=== PATIENT | male | born 1955 | race Caucasian/White ===

== ENCOUNTER 2016-05-03 08:13 | Outpatient (CLI) | payer OTHER ==
[2016-05-03] MEDS ORDERED: IOPAMIDOL-300 100 ML VIAL IVP ONE (10:14)
[2016-05-03] MEDS ORDERED: IOPAMIDOL-300 50 ML VIAL PO ONE (10:14)
== END 2016-05-03 08:14 | disposition home or self-care (01) ==
DX: D17.79 Benign lipomatous neoplasm of other sites (principal); K76.0 Fatty (change of) liver, not elsewhere classified
CPT/HCPCS: 36415; 74177; 82565; 84520; Q9967

== ENCOUNTER 2016-06-09 09:05 | Outpatient (CLI) | payer OTHER | END 2016-06-09 09:06 | disposition home or self-care (01) | DX: R06.02 Shortness of breath (principal); R01.1 Cardiac murmur, unspecified; I51.7 Cardiomegaly ==

== ENCOUNTER 2016-06-14 13:12 | Outpatient (CLI) | payer OTHER | END 2016-06-14 13:13 | disposition home or self-care (01) | DX: G47.33 Obstructive sleep apnea (adult) (pediatric) (principal) ==

== ENCOUNTER 2016-07-01 09:00 | Outpatient (CLI) | payer OTHER | END 2016-07-01 09:01 | disposition home or self-care (01) | DX: R07.9 Chest pain, unspecified (principal); R06.02 Shortness of breath; R07.2 Precordial pain | CPT/HCPCS: 78452; 93017; A9500 ==

== ENCOUNTER 2016-11-07 10:36 | Emergency (ER) | payer OTHER ==
--- NOTE | 2016-11-07 11:03 | ED Physician Documentation ---
PD HPI SKIN - Stated complaint Stated Complaint: R BIG TOE SWOLLEN - Chief complaint Chief Complaint: Ext Problem - History obtained from History obtained from: Patient - History of Present Illness Timing - onset: How many days ago (few) Timing - duration: Days (few) Timing - details: Gradual onset (he had abraded off some callous on side of great toe MT head area with small drilltype thing, but the callous area looks fine and no purulance nor redness.) Location: Other (right great toe dorsum.) Quality / character: Painful, Discolored (red), Swelling Associated symptoms: Myalgias. No: Fever, N/V/D Similar symptoms before: No diagnosis Recently seen: Not recently seen Review of Systems Constitutional: reports: Chills, Myalgias. denies: Fever, Fatigue Nose: denies: Rhinorrhea / runny nose, Congestion Throat: denies: Dental pain / toothache, Sore throat Cardiac: denies: Chest pain / pressure Respiratory: denies: Dyspnea, Cough GI: denies: Abdominal Pain, Nausea : denies: Dysuria, Frequency Skin: reports: Abrasion (s) (base of great toe MT). denies: Lesions PD PAST MEDICAL HISTORY - Past Medical History Cardiovascular: Hypertension, High cholesterol, Murmur Respiratory: Sleep apnea, CPAP use Endocrine/Autoimmune: Type 2 diabetes GI: GERD : None HEENT: Chronic sinusitis Psych: None Musculoskeletal: Other Derm: None - Past Surgical History Past Surgical History: Yes General: Colonoscopy Ortho: Arthroscopic surgery, Other - Present Medications Home Medications: Ambulatory Orders Medication Instructions Recorded Confirmed Amlodipine Besylate [Norvasc] 10 mg PO ONCE 08/28/14 11/07/16 Lisinopril 40 mg PO DAILY 08/28/14 11/07/16 Ascorbic Acid [Vitamin C] 500 mg PO DAILY 12/09/15 11/07/16 Aspirin [Adult Low Dose Aspirin EC] 81 mg PO DAILY 12/09/15 11/07/16 Atorvastatin Calcium 80 mg PO DAILY 12/09/15 11/07/16 Esomeprazole Magnesium [Nexium] 20 mg PO BID 12/09/15 11/07/16 Flaxseed Oil [[place]-3 Flaxseed Oil] 1,000 mg PO DAILY 12/09/15 11/07/16 Multivitamin [Multivitamins] 1 ea PO DAILY 12/09/15 11/07/16 [place]-3 Fatty Acids [Fish Oil] 300 mg PO DAILY 12/09/15 11/07/16 Ubidecarenone [Co Q-10] 75 mg PO DAILY 12/09/15 11/07/16 Cephalexin [Keflex] 500 mg PO QID #24 capsule 11/07/16 Dexamethasone [Decadron] 4 mg PO DAILY #5 tablet 11/07/16 HYDROcod/ACETAM 5/325 [[place] 5/325] 1 tab PO Q6H PRN #15 tablet 11/07/16 Sitagliptin Phosphate [Januvia] 50 mg PO DAILY 11/07/16 11/07/16 - Allergies Allergies/Adverse Reactions: Allergies Allergy/AdvReac Type Severity Reaction Status Date / Time No Known Drug Allergies Allergy Verified 12/09/15 10:10 - Social History Does the pt smoke?: No Smoking Status: Never smoker Does the pt drink ETOH?: Yes Does the pt have substance abuse?: No - Immunizations Immunizations are current?: Yes PD ED PE NORMAL - Vitals Vital signs reviewed: Yes - General General: Alert and oriented X 3, No acute distress, Well developed/nourished - HEENT HEENT: Pharynx benign - Neck Neck: Supple, no meningeal sign, No adenopathy - Derm Derm: Warm and dry - Extremities Extremities: Other (great toe MTP arrea dorsal, lateral with redness, swelling, tender. Mild effusion at MTP. ) - Neuro Neuro: No motor deficit, No sensory deficit Results - Vitals Vitals: Vital Signs - 24 hr 11/07/16 11/07/16 10:39 12:03 Temperature 36.5 C Heart Rate 84 70 Respiratory 18 20 Rate Blood Pressure 174/87 H 166/94 H O2 Saturation 99 97 Oxygen O2 Source Room air PD MEDICAL DECISION MAKING - ED course Complexity details: considered differential (some swelling of the great toe MTP but not much effusion, so I was not feeling there was a drainable amount. Can treat like potential gout vs. infection. He has some itchy patches anteromedial lower leg without blisters. Not quite convincing for shingles at this point. ), d/w patient Departure - Departure Disposition: 01 Home, Self Care Clinical Impression: Rash Great toe pain Qualifiers: Laterality: right Qualified Code(s): M79.674 - Pain in right toe(s) Condition: Stable Record reviewed to determine appropriate education?: Yes Instructions: ED Infec Skin Cellulitis, ED Arthritis Gout Prescriptions: Dexamethasone [Decadron] 4 mg PO DAILY #5 tablet Cephalexin [Keflex] 500 mg PO QID #24 capsule HYDROcod/ACETAM 5/325 [[place] 5/325] 1 tab PO Q6H PRN #15 tablet PRN Reason: Pain Comments: This looks like it may be an inflammatory response in the joint such as gout though there is concern for infection of the skin (cellulitis). Use the Decadron daily for the next 5 days. Use Tylenol or hydrocodone as needed for pain. Take the cephalexin as prescribed for concern of infection. The itchy spots on the lower leg may be unrelated. However if you develop more spots of rash on the leg or towards the back, then consider an alternative such as shingles. If this is not improving over the next few days or having worsening symptoms, return for reassessment. Discharge Date/Time: 11/07/16 12:03
[2016-11-07] MEDS ORDERED: CEPHALEXIN 250 MG CAPSULE PO STA (11:24)
[2016-11-07] MEDS ORDERED: DEXAMETHASONE 10 MG/ML VIAL PO STA (11:24)
[2016-11-07] MEDS ORDERED: DEXAMETHASONE 10 MG/ML VIAL ONE (11:30)
[2016-11-07] MEDS ORDERED: CEPHALEXIN 250 MG CAPSULE PO ONE (11:30)
[2016-11-07] MEDS ORDERED: CHERRY SYRUP 10 ML UDC PO ONE (11:30)
[2016-11-07] MEDS ORDERED: HYDROcod/ACETAM 5/325 MG TABLET PO STA (11:40)
[2016-11-07 12:05] VITALS: BP 166/94
== END 2016-11-07 12:03 | disposition home or self-care (01) ==
LOC: ED 10:36
DX: R21 Rash and other nonspecific skin eruption (principal); M79.674 Pain in right toe(s); I10 Essential (primary) hypertension; E78.00 Pure hypercholesterolemia, unspecified; G47.30 Sleep apnea, unspecified; E11.9 Type 2 diabetes mellitus without complications; Z79.84 Long term (current) use of oral hypoglycemic drugs; K21.9 Gastro-esophageal reflux disease without esophagitis; Z79.82 Long term (current) use of aspirin
CPT/HCPCS: 99283; A9270

== ENCOUNTER 2017-06-20 09:54 | Outpatient (CLI) | payer OTHER | END 2017-06-20 09:55 | disposition home or self-care (01) | LOC: SC 09:54 | PROVIDERS: ATTEND Internal Medicine Pulmonary Disease | DX: G47.33 Obstructive sleep apnea (adult) (pediatric) (principal) | CPT/HCPCS: 99212; 99213 ==

== ENCOUNTER 2018-06-16 09:36 | Outpatient (CLI) | payer MEDICARE, OTHER ==
[2018-06-16 13:54] LABS: CALCIUM 9.9 mg/dL (8.5-10.3)
[2018-06-16 14:25] LABS: CREATININE 1.1 mg/dL (0.6-1.2)
[2018-06-16 14:39] LABS: CREATININE,URINE 68.6 mg/dL; PROTEIN/CREATININE RATIO,URINE 0.6 (<=0.2)
== END 2018-06-16 23:59 | disposition home or self-care (01) ==
LOC: LAB.N 09:36
PROVIDERS: ATTEND Internal Medicine Nephrology
DX: N05.9 Unspecified nephritic syndrome with unspecified morphologic changes (principal); R80.9 Proteinuria, unspecified
CPT/HCPCS: 36415; 80048; 82570; 84156

== ENCOUNTER 2018-07-10 14:58 | Outpatient (CLI) | payer MEDICARE, OTHER | END 2018-07-10 14:59 | disposition home or self-care (01) | LOC: SC 14:58 | PROVIDERS: ATTEND Internal Medicine Pulmonary Disease | DX: G47.33 Obstructive sleep apnea (adult) (pediatric) (principal) | CPT/HCPCS: 99213; G0463; 99212 ==

== ENCOUNTER 2018-07-31 08:00 | Outpatient (CLI) | payer MEDICARE, OTHER ==
[2018-07-31 19:54] LABS: CALCIUM 10.1 mg/dL (8.5-10.3); CREATININE 1.3 mg/dL (0.6-1.2)
== END 2018-07-31 23:59 | disposition home or self-care (01) ==
LOC: LAB.N 08:00
PROVIDERS: ATTEND Internal Medicine Nephrology
DX: N05.9 Unspecified nephritic syndrome with unspecified morphologic changes (principal)
CPT/HCPCS: 36415; 80048

== ENCOUNTER 2019-01-15 10:13 | Outpatient (CLI) | payer MEDICARE, OTHER ==
--- NOTE | 2019-01-15 11:04 | SLEEP CARE CONSULTATION ---
Information from patient questionnaire entered by Clare Rolon. I have reviewed and concur with the information entered by Clare Rolon. This document represents the service I personally performed and the decisions made by me, Larisa Chu MD, [facility]. History of Present Illness Previous diagnosis: Very Severe, Obstructive Sleep Apnea-Hypopnea Syndrome AHI: 83 Reason for CPAP/BiPAP follow up: six month (AND NEW MACHINE) Equipment type: CPAP Equipment obtained from: [employer] Prior sleep studies: Yes Year and Where: 2005 Merged with [facility] HPI additional information: HPI: Mr. Flores was diagnosed to have very severe obstructive sleep apnea- hypopnea syndrome and returns today for annual follow up of CPAP therapy. The patient gets his supplies from [employer] and was fitted with nasal pillows. He continues to use the device nightly and all through the night. The compliance report shows that he uses the device 179 nights out of the past 180 nights, averaging 7.9 hours a night. He complains of nasal congestion and occasional sinus pain. He thinks that the pressure of 6 12 cmH2O is more comfortable (lowered from 8 - 13 cmH2O). On the CPAP therapy he notices improvement in his sleep quality, and that he wakes up feeling fresher in the morning and more awake/alert during the day. [place] Sleepiness Scale score is 0. His notices no snore at all. The average residual AHI is 1.6; and large leak, 3 seconds a night. ROS: Same as previous. Current Medications: lisinopril, Norvasc, Lipitor, aspirin, and chlorthalidone CPAP Compliance Data - Data Reviewed with Patient Average duration of nightly device use: 7H 58M Compliance rate %: 98.9 Current pressure setting (cmH2O): 6-12 Humidity settin Heated hose settin Subjective Initial [place] Sleepiness Scale score: 1 Current [place] Sleepiness Scale score: 0 Allergies and Home Medications Drug allergies reviewed: Yes Home medication list reviewed: Yes Review of Systems Review of systems same as previous: Yes Physical Exam Weight: 229 lb Impression and Plan IMPRESSION: 1. Obstructive Sleep Apnea-Hypopnea Syndrome, very severe, with the patient continuing to do well on nasal CPAP therapy. He continues to have excellent compliance and significant clinical benefits. The current pressure appears effective but comfortable. No adjustment is necessary today except for him to raise the heated humidifier setting. Because the CPAP is now older than the useful life of 5 years, I will order the patient a new one and make it an autoCPAP set between 6 and 12 cmH2O. PLAN: 1. Prescription made for an autoCPAP, heated humidifier, and related supplies. 2. Try to lose weight 3. Raise the heated humidifier for dryness. 4. Return for follow up after one month on the new machine. I spent 100% of this 15 minute visit face to face with the patient with greater than 50% of this was spent time counseling the patient and coordination of care.
== END 2019-01-15 10:14 | disposition home or self-care (01) ==
LOC: SC 10:13
PROVIDERS: ATTEND Internal Medicine Pulmonary Disease
DX: G47.33 Obstructive sleep apnea (adult) (pediatric) (principal)
CPT/HCPCS: 99212; 99213

== ENCOUNTER 2019-04-03 09:30 | Outpatient (CLI) | payer MEDICARE, OTHER ==
--- NOTE | 2019-04-03 13:33 | SLEEP CARE CONSULTATION ---
Information from patient questionnaire entered by Alda Johnson. I have reviewed and concur with the information entered by Alda Johnson. This document represents the service I personally performed and the decisions made by me, Larisa Chu MD, [facility]. History of Present Illness Previous diagnosis: Very Severe, Obstructive Sleep Apnea-Hypopnea Syndrome Reason for follow up: first compliance after device update Equipment type: CPAP [facility]: [facility] HPI additional information: HPI: Mr. Flores was diagnosed to have very severe obstructive sleep apnea- hypopnea syndrome and returns today for follow up of CPAP therapy after having acquired a new machine about 2 months ago [facility]. The patient gets his supplies from [employer] and was fitted with nasal pillows. He continues to use the device nightly and all through the night. The compliance report shows that he uses the device 30 nights out of the past 30 nights, averaging 8.5 hours a night. The > 4 hour compliance rate for the past 30 days is 100%. He complains of occasional insomnia and nasal congestion but no sinus pain. He thinks that the pressure of 6 12 cmH2O is more comfortable (same as on his old machine). On the CPAP therapy he notices improvement in his sleep quality, and that he wakes up feeling fresher in the morning and more awake/alert during the day. [place] Sleepiness Scale score is 0. His notices no snore at all. The average residual AHI is 3.5; and large leak, 3 minutes a night. The 90th percentile pressure is 10.4 cmH2O. CPAP Compliance Data - Data Reviewed with Patient Average duration of nightly device use: 8.5 Compliance rate %: 100 Current pressure setting (cmH2O): 6-12 Humidity settin Heated hose settin Average residual AHI: 3.5 Average large leak: 3 min 20 sec Subjective Initial [place] Sleepiness Scale score: 3 Current [place] Sleepiness Scale score: 0 Allergies and Home Medications Drug allergies reviewed: Yes (NKDA) Home medication list reviewed: Yes Allergy and home medication list: Current Medications: lisinopril, Norvasc, Lipitor, aspirin, and Co Q-10 Review of Systems Review of systems same as previous: Yes Physical Exam Weight: 218 lb Impression and Plan IMPRESSION: 1. Obstructive Sleep Apnea-Hypopnea Syndrome, very severe, with the patient continuing to do well on nasal CPAP therapy. He continues to have excellent compliance and significant clinical benefits. The current pressure appears effective but comfortable. No adjustment is necessary today. 2. Insomnia, due to excessive time spent in bed. His average CPAP usage has increased from 7.9 hours to 8.5 hours a night. This is because he no longer works and gets up late. However, he fails to move his bedtime later as well. PLAN: 1. Continue with autoCPAP set at 6 12 cmH2O. 2. Try to lose weight 3. Raise the heated humidifier for dryness and lower the tube temperature to reduce warmth. 4. Maintain a regular wake up time and spend no more than 8 hours in bed at night. Avoid naps. 5. Return for follow up in a year or earlier if there is any problem. I spent 100% of this visit face to face with the patient with greater than 50% of this was spent time counseling the patient and coordination of care.
== END 2019-04-03 09:31 | disposition home or self-care (01) ==
LOC: SC 09:30
PROVIDERS: ATTEND Internal Medicine Pulmonary Disease
DX: G47.33 Obstructive sleep apnea (adult) (pediatric) (principal); G47.00 Insomnia, unspecified
CPT/HCPCS: 99213; G0463; 99212

== ENCOUNTER 2019-08-16 08:00 | Outpatient (CLI) | payer MEDICARE, OTHER ==
[2019-08-16 18:16] LABS: HGB - HEMOGLOBIN 14.6 g/dL (14.0-18.0); MEAN CORPUSCULAR HEMOGLOBIN 30.9 pg (27.0-31.0); MEAN CORPUSCULAR HGB CONC 33.6 g/dL (32.0-36.0); MEAN CORPUSCULAR VOLUME 91.9 fL (80.0-94.0); MEAN PLATELET VOLUME 10.7 fL (7.4-11.4); RED BLOOD COUNT 4.72 10^6/uL (4.70-6.10); RED CELL DISTRIBUTION WIDTH 13.3 % (12.0-15.0); WHITE BLOOD COUNT 9.6 x10^3/uL (4.8-10.8)
[2019-08-16 18:36] LABS: CALCIUM 9.9 mg/dL (8.5-10.3); CREATININE 1.4 mg/dL (0.6-1.2)
[2019-08-16 18:42] LABS: PROTEIN/CREATININE RATIO,URINE 0.2 (<=0.2)
== END 2019-08-16 23:59 | disposition home or self-care (01) ==
LOC: LAB.WCP 08:00
PROVIDERS: ATTEND Internal Medicine Nephrology
DX: N05.9 Unspecified nephritic syndrome with unspecified morphologic changes (principal); D70.9 Neutropenia, unspecified; D63.1 Anemia in chronic kidney disease; R80.9 Proteinuria, unspecified; N18.9 Chronic kidney disease, unspecified
CPT/HCPCS: 36415; 80048; 82570; 84156; 85027

== ENCOUNTER 2020-04-08 11:02 | Outpatient (CLI) | payer MEDICARE, OTHER ==
--- NOTE | 2020-04-08 12:50 | SLEEP CARE CONSULTATION ---
Information from patient questionnaire entered by Alda Johnson. I have reviewed and concur with the information entered by Alda Johnson. This document represents the service I personally performed and the decisions made by me, Larisa Chu MD, [facility]. History of Present Illness Service Date and Time: 04/08/2020 1102 Previous diagnosis: Very Severe, Obstructive Sleep Apnea-Hypopnea Syndrome AHI: 83 (in 2005) Reason for follow up: annual (last seen 03/2019) Equipment type: CPAP Equipment obtained from: [employer] Mask style: Nasal Prior sleep studies: Yes Year and Where: 2005 - [facility] Type of Sleep Study: Polysomnography HPI additional information: HPI: Mr. Flores was diagnosed to have very severe obstructive sleep apnea- hypopnea syndrome and returns today for annual follow up of CPAP therapy. His durable medical supplier is [employer]. The patient now wears a [employer] DreamWear nasal cushion mask. He continues to use the device nightly and all through the night. The compliance report shows that he uses the device 179 n ights out of the past 180 nights, averaging 8.3 hours a night. The > 4 hour compliance rate for the past 180 days is 98%. He complains of occasional insomnia and nasal congestion but no sinus pain. He thinks that the pressure of 6 12 cmH2O is more comfortable (same as on his old machine). On the CPAP therapy he notices improvement in his sleep quality, and that he wakes up feeling fresher in the morning and more awake/alert during the day. [place] Sleepiness Scale score is 0. His notices no snore at all. The average residual AHI is 2.4 (was 3.5); and large leak, 27 seconds a night. The 90th percentile pressure is 9.4 cmH2O. CPAP Compliance Data - Data Reviewed with Patient Average duration of nightly device use: 8 hr 24 min Compliance rate %: 99.4 (180 days) Current pressure setting (cmH2O): 6-12 Humidity settin Heated hose settin Average residual AHI: 2.4 Average large leak: 27 sec Subjective Current pressure setting perceived as: comfortable Initial [place] Sleepiness Scale score: 3 (in 2005) Current [place] Sleepiness Scale score: 0 Allergies and Home Medications Drug allergies reviewed: Yes Home medication list reviewed: Yes Review of Systems Review of systems same as previous: Yes Physical Exam Vital signs obtained and entered by: To minimize the risk of COVID-19 exposure, detailed exam was not performed. Height: 5 ft 6 in Weight: 180 lb Body Mass Index: 29.0 BMI Classification: Overweight Impression and Plan IMPRESSION: 1. Obstructive Sleep Apnea-Hypopnea Syndrome, very severe, with the patient continuing to do well on nasal CPAP therapy. He continues to have excellent compliance and significant clinical benefits. His mask fits well. T he current pressure appears effective but comfortable. No adjustment is necessary today. PLAN: 1. Continue with autoCPAP set at 6 12 cmH2O. 2. Try to lose weight 3. Return for follow up in a year or earlier if there is any problem. Visit Type: In Office Time Spent with Patient (minutes): 15 Provider Statement: I spent 100% of the Face to Face Visit with the patient with greater than 50% spent counseling the patient and coordination of care.
== END 2020-04-08 11:03 | disposition home or self-care (01) ==
LOC: SC 11:02
PROVIDERS: ATTEND Internal Medicine Pulmonary Disease
DX: G47.33 Obstructive sleep apnea (adult) (pediatric) (principal); E66.3 Overweight; Z68.29 Body mass index [BMI] 29.0-29.9, adult
CPT/HCPCS: 99213; G0463; 99212

== ENCOUNTER 2020-10-30 07:07 | Outpatient (CLI) | payer MEDICARE, OTHER ==
[2020-10-30 11:40] LABS: CREATININE,URINE 144.3 mg/dL; PROTEIN/CREATININE RATIO,URINE 0.4 (<=0.2)
[2020-10-30 11:42] LABS: CREATININE 1.7 mg/dL (0.6-1.2); POTASSIUM 4.4 mmol/L (3.5-5.0)
[2020-10-30 12:05] LABS: HGB - HEMOGLOBIN 14.8 g/dL (14.0-18.0); MEAN CORPUSCULAR HEMOGLOBIN 31.2 pg (27.0-31.0); MEAN CORPUSCULAR HGB CONC 33.6 g/dL (32.0-36.0); MEAN CORPUSCULAR VOLUME 92.8 fL (80.0-94.0); MEAN PLATELET VOLUME 10.8 fL (7.4-11.4); RED BLOOD COUNT 4.74 10^6/uL (4.70-6.10); RED CELL DISTRIBUTION WIDTH 13.3 % (12.0-15.0); WHITE BLOOD COUNT 7.8 x10^3/uL (4.8-10.8)
== END 2020-10-30 23:59 | disposition home or self-care (01) ==
LOC: LAB.WCP 07:07
PROVIDERS: ATTEND Internal Medicine Nephrology
DX: N05.9 Unspecified nephritic syndrome with unspecified morphologic changes (principal); D63.1 Anemia in chronic kidney disease; D70.9 Neutropenia, unspecified; R80.9 Proteinuria, unspecified
CPT/HCPCS: 36415; 80048; 82043; 82570; 84156; 85027

== ENCOUNTER 2020-11-11 10:54 | Outpatient (CLI) | payer MEDICARE, OTHER ==
[2020-11-11 18:01] LABS: CREATININE 1.4 mg/dL (0.6-1.2)
== END 2020-11-11 10:55 | disposition home or self-care (01) ==
LOC: LAB.N 10:54
PROVIDERS: ATTEND Internal Medicine Nephrology
DX: N05.9 Unspecified nephritic syndrome with unspecified morphologic changes (principal)
CPT/HCPCS: 36415; 82565

== ENCOUNTER 2021-02-27 08:00 | Outpatient (CLI) | payer MEDICARE, OTHER ==
[2021-02-27 12:58] LABS: CREATININE 1.6 mg/dL (0.6-1.2)
== END 2021-02-27 23:59 | disposition home or self-care (01) ==
LOC: LAB.WCP 08:00
PROVIDERS: ATTEND Otolaryngology
DX: Z01.812 Encounter for preprocedural laboratory examination (principal)
CPT/HCPCS: 36415; 82565; 84520

== ENCOUNTER 2021-06-17 10:05 | Outpatient (CLI) | payer MEDICARE, OTHER ==
[2021-06-17 12:24] LABS: PROTEIN/CREATININE RATIO,URINE 0.5 (<=0.2)
[2021-06-17 13:05] LABS: CREATININE 1.7 mg/dL (0.6-1.2); POTASSIUM 4.2 mmol/L (3.5-5.0)
== END 2021-06-17 10:06 | disposition home or self-care (01) ==
LOC: LAB.N 10:05
PROVIDERS: ATTEND Internal Medicine Nephrology
DX: N05.9 Unspecified nephritic syndrome with unspecified morphologic changes (principal); R80.9 Proteinuria, unspecified
CPT/HCPCS: 36415; 80048; 82570; 84156

== ENCOUNTER 2022-05-28 07:12 | Outpatient (CLI) | payer MEDICARE, OTHER ==
[2022-05-28 12:09] LABS: BASOPHILS % (AUTO) 0.5 %; EOSINOPHILS # (AUTO) 0.2 10^3/uL (0.0-0.7); HCT - HEMATOCRIT 44.7 % (42.0-52.0); LYMPHOCYTES # (AUTO) 2.5 10^3/uL (1.5-3.5); MEAN CORPUSCULAR HEMOGLOBIN 30.9 pg (27.0-31.0); MEAN CORPUSCULAR HGB CONC 33.6 g/dL (32.0-36.0); MEAN PLATELET VOLUME 10.4 fL (7.4-11.4); MONOCYTES # (AUTO) 0.5 10^3/uL (0.0-1.0); MONOCYTES % (AUTO) 6.3 %; NEUTROPHILS # (AUTO) 4.3 10^3/uL (1.5-6.6); NEUTROPHILS % (AUTO) 57.9 %; PLT - PLATELET COUNT 247 10^3/uL (130-450); RED BLOOD COUNT 4.86 10^6/uL (4.70-6.10); RED CELL DISTRIBUTION WIDTH 13.5 % (12.0-15.0); WHITE BLOOD COUNT 7.5 x10^3/uL (4.8-10.8)
[2022-05-28 13:23] LABS: CREATININE 1.5 mg/dL (0.6-1.2); POTASSIUM 4.3 mmol/L (3.5-5.0)
== END 2022-05-28 07:13 | disposition home or self-care (01) ==
LOC: LAB.N 07:12
PROVIDERS: ATTEND Internal Medicine Nephrology
DX: N05.9 Unspecified nephritic syndrome with unspecified morphologic changes (principal); D70.9 Neutropenia, unspecified; D63.1 Anemia in chronic kidney disease
CPT/HCPCS: 36415; 80048; 85025

== ENCOUNTER 2022-07-07 14:38 | Emergency (ER) | payer MEDICARE, OTHER ==
[2022-07-07 15:15] LABS: BASOPHILS % (AUTO) 0.3 %; EOSINOPHILS # (AUTO) 0.1 10^3/uL (0.0-0.7); EOSINOPHILS % (AUTO) 0.6 %; HCT - HEMATOCRIT 46.9 % (42.0-52.0); HGB - HEMOGLOBIN 16.1 g/dL (14.0-18.0); LYMPHOCYTES # (AUTO) 2.5 10^3/uL (1.5-3.5); LYMPHOCYTES % (AUTO) 19.1 %; MEAN CORPUSCULAR HEMOGLOBIN 30.9 pg (27.0-31.0); MEAN CORPUSCULAR HGB CONC 34.3 g/dL (32.0-36.0); MEAN PLATELET VOLUME 9.7 fL (7.4-11.4); MONOCYTES # (AUTO) 0.9 10^3/uL (0.0-1.0); MONOCYTES % (AUTO) 6.9 %; NEUTROPHILS # (AUTO) 9.4 10^3/uL (1.5-6.6); NEUTROPHILS % (AUTO) 72.8 %; PLT - PLATELET COUNT 261 10^3/uL (130-450); RED BLOOD COUNT 5.21 10^6/uL (4.70-6.10); RED CELL DISTRIBUTION WIDTH 13.3 % (12.0-15.0); WHITE BLOOD COUNT 12.9 x10^3/uL (4.8-10.8)
[2022-07-07 15:22] LABS: BILIRUBIN,URINE NEGATIVE (NEGATIVE); GLUCOSE, URINE (UA) NEGATIVE (NEGATIVE); KETONES,URINE (UA) TRACE mg/dL (NEGATIVE); LEUKOCYTE ESTERASE, URINE NEGATIVE (NEGATIVE); NITRITE,URINE NEGATIVE (NEGATIVE); OCCULT BLOOD,URINE NEGATIVE (NEGATIVE); PH,URINE 5.5 PH (5.0-7.5); PROTEIN,URINE >=300 mg/dL (NEGATIVE); UROBILINOGEN,URINE 0.2 (NORMAL) E.U./dL (NORMAL)
[2022-07-07 15:23] LABS: CLARITY,URINE CLEAR (CLEAR)
[2022-07-07 15:26] LABS: ALBUMIN 4.9 g/dL (3.2-5.5); ALBUMIN/GLOBULIN RATIO 1.5 (1.0-2.2); BILIRUBIN,TOTAL 0.9 mg/dL (0.2-1.0); CREATININE 1.9 mg/dL (0.6-1.2); POTASSIUM 3.9 mmol/L (3.5-5.0); TOTAL PROTEIN 8.2 g/dL (6.7-8.2)
[2022-07-07 16:01] LABS: BACTERIA,URINE Few /HPF (None Seen); CASTS, URINE 11-25 Hyaline Casts /LPF; RBC,URINE 0-5 /HPF (0-5); SQUAMOUS EPITHELIAL CELL,UR FEW Squamous (<= Few)
[2022-07-07] MEDS ORDERED: SODIUM CHLORIDE 0.9% 1,000 ML IV STA ×2 (16:38)
--- NOTE | 2022-07-07 16:47 | ED Physician Documentation ---
History of Present Illness - Stated complaint Stated Complaint: LOWER ABD/SIDE PX - Chief complaint Chief Complaint: Abd Pain - History obtained from History obtained from: Patient, Family - History of Present Illness Pain level max: 6 Pain level now: 3 - Additonal information Additional information: Patient is a 67-year-old male who presents to the emergency department with right lower quadrant abdominal pain that started on Tuesday. Has gradually increased since that time. He states that he has intermittent diarrhea at home but this is not uncommon. Worse with movement and palpation. Better with rest. No vomiting. No fevers. No chills. Has not had any abdominal surgeries in the past. Patient states that he does have an umbilical hernia. Review of Systems Constitutional: denies: Fever, Chills Cardiac: denies: Chest pain / pressure, Palpitations Respiratory: denies: Dyspnea, Cough GI: denies: Vomiting, Hematemesis, Bloody / black stool : denies: Dysuria, Frequency, Hesitancy, Hematuria Skin: denies: Rash Musculoskeletal: denies: Neck pain, Back pain PD PAST MEDICAL HISTORY - Past Medical History Past Medical History: Yes Cardiovascular: Hypertension, High cholesterol, Murmur Respiratory: Sleep apnea, CPAP use Endocrine/Autoimmune: Type 2 diabetes GI: GERD : Renal insuffiency HEENT: Chronic sinusitis Psych: None Musculoskeletal: Other Derm: None - Past Surgical History Past Surgical History: Yes General: Colonoscopy Ortho: Arthroscopic surgery, Other - Present Medications Home Medications: Ambulatory Orders Medication Instructions Recorded Confirmed Amlodipine Besylate [Norvasc] 10 mg PO DAILY 08/28/14 03/01/22 lisinopriL [Lisinopril] 40 mg PO DAILY 08/28/14 03/01/22 Ascorbic Acid [Vitamin C] 500 mg PO DAILY 12/09/15 03/01/22 Aspirin [Adult Low Dose Aspirin EC] 81 mg PO DAILY 12/09/15 03/01/22 Atorvastatin Calcium 80 mg PO DAILY 12/09/15 03/01/22 Multivitamin [Multivitamins] 1 ea PO DAILY 12/09/15 03/01/22 [place]-3 Fatty Acids [Fish Oil] 300 mg PO DAILY 12/09/15 03/01/22 Ubidecarenone [Co Q-10] 75 mg PO DAILY 12/09/15 03/01/22 flaxseed oiL [[place]-3 Flaxseed Oil] 1,000 mg PO DAILY 12/09/15 03/01/22 Sitagliptin Phosphate [Januvia] 50 mg PO DAILY 11/07/16 03/01/22 Amox/Clav 875/125 [Augmentin] 1 tab PO Q12H #20 tablet 07/07/22 Chlorthalidone 25 mg ORAL DAILY 07/07/22 07/07/22 Dulaglutide [Trulicity] 0.75 mg SQ 07/07/22 07/07/22 - Allergies Allergies/Adverse Reactions: Allergies Allergy/AdvReac Type Severity Reaction Status Date / Time No Known Drug Allergies Allergy Verified 03/01/22 09:11 - Social History Does the pt smoke?: No Smoking Status: Never smoker Does the pt drink ETOH?: Yes Does the pt have substance abuse?: No - Immunizations Immunizations are current?: Yes PD ED PE NORMAL - Vitals Vital signs reviewed: Yes - General General: Alert and oriented X 3, No acute distress - HEENT HEENT: PERRL, Moist mucous membranes, Pharynx benign - Neck Neck: Supple, no meningeal sign - Cardiac Cardiac: RRR, Strong equal pulses - Respiratory Respiratory: No respiratory distress, Clear bilaterally - Abdomen Abdomen: Soft, Non distended, Other (Tender to palpation right lower quadrant. No peritoneal signs. No rebound or guarding.) - Back Back: No CVA TTP - Derm Derm: Warm and dry, No rash - Neuro Neuro: Alert and oriented X 3 - Psych Psych: Normal mood, Normal affect Results - Vitals Vitals: Vital Signs - 24 hr 07/07/22 07/07/22 07/07/22 14:56 16:30 18:48 Temperature 37.0 C Heart Rate 95 92 82 Respiratory 18 16 17 Rate Blood Pressure 175/94 H 154/101 H 155/79 H O2 Saturation 98 96 98 Oxygen O2 Source Room air - Labs Labs: Laboratory Tests 07/07/22 07/07/22 07/07/22 15:09 15:09 15:10 WBC 12.9 H RBC 5.21 Hgb 16.1 Hct 46.9 MCV 90.0 MCH 30.9 MCHC 34.3 RDW 13.3 Plt Count 261 MPV 9.7 Neut # (Auto) 9.4 H Lymph # (Auto) 2.5 Meigs # (Auto) 0.9 Eos # (Auto) 0.1 Baso # (Auto) 0.0 Absolute Nucleated RBC 0.00 Nucleated RBC % 0.0 Sodium 139 Potassium 3.9 Chloride 104 Carbon Dioxide 24 Anion Gap 11.0 BUN 29 H Creatinine 1.9 H Estimated GFR (MDRD) 35 L Glucose 145 H Calcium 10.0 Total Bilirubin 0.9 AST 23 ALT 28 Alkaline Phosphatase 59 Total Protein 8.2 Albumin 4.9 Globulin 3.3 Albumin/Globulin Ratio 1.5 Lipase 48 Urine Color YELLOW Urine Clarity CLEAR Urine pH 5.5 Ur Specific [place] >=1.030 H Urine Protein >=300 H Urine Glucose (UA) NEGATIVE Urine Ketones TRACE Urine Occult Blood NEGATIVE Urine Nitrite NEGATIVE Urine Bilirubin NEGATIVE Urine Urobilinogen 0.2 (NORMAL) Ur Leukocyte Esterase NEGATIVE Urine RBC 0-5 Urine WBC 4-5 Ur Squamous Epith Cells FEW Squamous Urine Bacteria Few Urine Casts 11-25 Hyaline Casts Ur Microscopic Review INDICATED Urine Culture Comments NOT INDICATED - Rads (name of study) CT abdomen pelvis Relevant Findings:: Final report received, See rad report PD Medical Decision Making - ED course Complexity details: reviewed results, re-evaluated patient, considered differential, d/w patient, d/w family ED course: Patient with with right-sided abdominal pain. In the right lower quadrant. His CBC is significant for a mild leukocytosis, 12,900. Chemistry shows chronic renal insufficiency. CT scan shows a right-sided colitis. Appendix is normal. Patient is very well-appearing, nontoxic. Afebrile. We will place on antibiotics for home and have him follow-up with his doctor. Patient declines pain medication here or for home. Patient counseled regarding signs and symptoms for which I believe and urgent re-evaluation would be necessary. Patient with good understanding of and agreement to plan and is comfortable going home at this time This document was made in part using voice recognition software. While efforts are made to proofread this document, sound alike and grammatical errors may occur. Departure - Departure Disposition: 01 Home, Self Care Clinical Impression: Colitis Condition: Good Instructions: ED Diverticulitis Follow-Up: your,doctor in 1 week [Other] Prescriptions: Amox/Clav 875/125 [Augmentin] 1 tab PO Q12H #20 tablet Comments: You have colitis on your CT scan today. We will place you on antibiotics for this. This should improve over the next few days. Please return if you worsen including fevers, worsening pain or other new or worrisome symptoms. Your prescription was sent to the [email or web address]. ABDOMEN: Lung bases: Lung bases are clear. Heart size is normal. Solid organs: Spleen is normal in size and enhancement. There is hepatomegaly and mild hepatic steatosis. No discrete hepatic lesion. Gallbladder contains a small calcified stones in its dependent portion. No discrete gallbladder wall thickening or pericholecystic fluid is seen. Biliary system is non dilated. Pancreas enhances normally. 3 x 2.2 cm oval hypodense nodule in right adrenal gland is again seen unchanged from prior study and may represent adrenal adenoma. Kidneys demonstrate normal size and enhancement, without hydronephrosis. Nonspecific mild bilateral perinephric fat stranding is seen. There are suggestion of lower pole right renal cysts measures up to 1.6 cm in size. Peritoneum and bowel: There is no bowel obstruction. No gastric or small bowel wall thickening. Appendix is visualized and is within normal limits. There is ascending colon wall thickening with pericolonic fat stranding concerning for infectious or inflammatory colitis. No other area of colonic wall thickening is seen. No abscess collection. Mild sigmoid diverticulosis is seen, no CT evidence of acute diverticulitis. No free fluid of free air. Nodes and vessels: No retroperitoneal or mesenteric adenopathy by size criteria. Aorta and inferior vena cava are normal in size. Mild to moderate atherosclerotic calcifications in abdominal aorta and bilateral iliac vessels are seen. Miscellaneous: No ventral hernias. PELVIS: Genitourinary: Bladder wall thickness is normal. Miscellaneous: No inguinal hernias or adenopathy. Bones: No suspicious bony lesions. No vertebral body compression fractures. IMPRESSION: 1. Proximal to mid descending colon wall thickening and pericolonic fat stranding concerning for low-grade infectious or inflammatory colitis. 2. Normal appendix. Sigmoid diverticulosis without evidence of acute diverticulitis. No abscess collection. No free fluid of free air. 3. Hepatomegaly and mild hepatic steatosis, no discrete hepatic lesion. 4. Cholelithiasis without CT evidence of acute cholecystitis. 5. Nonspecific bilateral perinephric fat stranding. Suggestion of bilateral renal cysts. No hydronephrosis or hydroureter. 6. Stable appearing hypodense nodule in right adrenal gland which may represent adrenal adenoma. Discharge Date/Time: 07/07/22 18:50
[2022-07-07] MEDS ORDERED: iohexoL-300 100 ML VIAL ONE (17:03)
--- NOTE | 2022-07-07 18:10 | CT Report ---
PROCEDURE: ABDOMEN/PELVIS W INDICATIONS: RLQ abd pain CONTRAST: 80mL Omni 300 (kidney disease) TECHNIQUE: After the administration of IV contrast, 5 mm thick sections acquired from the diaphragms to the symp hysis. 5 mm thick coronal and sagittal reformats were acquired. For radiation dose reduction, the f ollowing was used: automated exposure control, adjustment of mA and/or kV according to patient size. COMPARISON: 05/03/2016. FINDINGS: Image quality: Excellent. ABDOMEN: Lung bases: Lung bases are clear. Heart size is normal. Solid organs: Spleen is normal in size and enhancement. There is hepatomegaly and mild hepatic steato sis. No discrete hepatic lesion. Gallbladder contains a small calcified stones in its dependent porti on. No discrete gallbladder wall thickening or pericholecystic fluid is seen. Biliary system is non dilated. Pancreas enhances normally. 3 x 2.2 cm oval hypodense nodule in right adrenal gland is agai n seen unchanged from prior study and may represent adrenal adenoma. Kidneys demonstrate normal size and enhancement, without hydronephrosis. Nonspecific mild bilateral perinephric fat stranding is see n. There are suggestion of lower pole right renal cysts measures up to 1.6 cm in size. Peritoneum and bowel: There is no bowel obstruction. No gastric or small bowel wall thickening. Appen charlie is visualized and is within normal limits. There is ascending colon wall thickening with pericolo marilee fat stranding concerning for infectious or inflammatory colitis. No other area of colonic wall th ickening is seen. No abscess collection. Mild sigmoid diverticulosis is seen, no CT evidence of acute diverticulitis. No free fluid of free air. Nodes and vessels: No retroperitoneal or mesenteric adenopathy by size criteria. Aorta and inferior vena cava are normal in size. Mild to moderate atherosclerotic calcifications in abdominal aorta an d bilateral iliac vessels are seen. Miscellaneous: No ventral hernias. PELVIS: Genitourinary: Bladder wall thickness is normal. Miscellaneous: No inguinal hernias or adenopathy. Bones: No suspicious bony lesions. No vertebral body compression fractures. IMPRESSION: 1. Proximal to mid descending colon wall thickening and pericolonic fat stranding concerning for low- grade infectious or inflammatory colitis. 2. Normal appendix. Sigmoid diverticulosis without evidence of acute diverticulitis. No abscess colle ction. No free fluid of free air. 3. Hepatomegaly and mild hepatic steatosis, no discrete hepatic lesion. 4. Cholelithiasis without CT evidence of acute cholecystitis. 5. Nonspecific bilateral perinephric fat stranding. Suggestion of bilateral renal cysts. No hydroneph rosis or hydroureter. 6. Stable appearing hypodense nodule in right adrenal gland which may represent adrenal adenoma. Reviewed by: Sánchez Mcguire MD on 07/07/2022 5:09 PM AKSHARON Approved by: Sánchez Mcguire MD on 07/07/2022 5:09 PM AKDT Station ID: [id number]
[2022-07-07] MEDS ORDERED: AMOX/CLAV 875 MG/125 MG TABLET PO STA (18:35)
[2022-07-07 18:49] VITALS: BP 155/79
[2022-07-07] MEDS ORDERED: iohexoL-300 100 ML VIAL IVP ONE (19:28)
== END 2022-07-07 18:50 | disposition home or self-care (01) ==
LOC: ED 14:38
DX: K52.9 Noninfective gastroenteritis and colitis, unspecified (principal)
CPT/HCPCS: 36415; 74177; 80053; 81001; 83690; 85025; 99284; A9270; Q9967; 81003; 87086